=== PATIENT | male | born 1965 | race Caucasian/White ===

== ENCOUNTER 2023-03-29 16:06 | Emergency (ER) | payer OTHER, SELFPAY ==
[2023-03-29 16:09] VITALS: BP 147/96
[2023-03-29 16:28] LABS: % Basophils 0.9 % (0-2); % Immature Granulocytes 0.1 % (0-0.5); % Lymphocytes 38.5 % (20.5-51.1); % Monocytes 8.7 % (1.7-9.3); % Neutrophils 49.8 % (42.2-75.2); Absolute Basophils 0.1 10^3/uL (0-0.2); Absolute Eosinophils 0.2 10^3/uL (0-0.7); Absolute Lymphocytes 3.1 10^3/uL (1.2-3.4); Absolute Monocytes 0.7 10^3/uL (0.1-0.6); Absolute Neutrophils 4.1 10^3/uL (1.4-6.5); Hemoglobin 14.5 g/dL (13.0-18.0); Mean Corp Hgb Conc. 35.4 g/dL (33.0-37.0); Mean Corpuscular Hgb 29.9 pg (27.0-31.0); Mean Corpuscular Volume 84.5 fL (80.0-94.0); Mean Platelet Volume 9.2 fL (7.4-10.4); Nucleated Red Blood Cells % 0 % (-); Platelet Count 398 10^3/uL (130-400); Red Blood Cell Count 4.85 10^6/uL (4.70-6.10); Red Cell Dist. Width 12.4 % (11.5-14.5); White Blood Cell Count 8.1 10^3/uL (4.8-10.8)
[2023-03-29 16:50] LABS: ALT (SGPT) 23 U/L (0-50); AST (SGOT) 33 U/L (17-59); Albumin 4.3 g/dl (3.5-5.0); Alkaline Phosphatase 57 U/L (38-126); Blood Urea Nitrogen 15 mg/dl (9-20); Calcium 9.9 mg/dl (8.4-10.2); Carbon Dioxide 29 mmol/L (22-30); Chloride 97 mmol/L (98-107); Glucose 117 mg/dl (70-99); Potassium 4.2 mmol/L (3.5-5.1); Sodium 136 mmol/L (135-145); Total Bilirubin 0.9 mg/dl (0.2-1.3); eGFR > 60.00
[2023-03-29 16:53] LABS: Troponin I < 0.012 ng/ml
--- NOTE | 2023-03-29 19:03 | ED.GENMED ---
History of Present Illness
General
Chief Complaint: Chest Pain
Source: patient
Exam Limitations: none
Time Seen by Provider: 03/29/23 18:43
Travel History
Have you had any contact with someone who has COVID-19?: No
Do you have any symptoms of coronavirus? Fever > 100 degrees, chills, cough, shortness of breath, sore throat, loss of taste or smell, muscle aches, or headache?: No
History of Present Illness
History of Present Illness:
This is a 58 year old male that comes in with c/o chest pain. States that he has had chest pain for the past 9 months. States that the pain has been constant but the intensitiy changes. States that today the pain was severe and its like a cattle
prod. States that the pain is on the left sided and into the side. States that today he felt lightheaded, dizzy and then he started with some numbness in the left arm and felt nauseated. States that the last time he was here he was told to stop
smoking so he did and is trying to eat better. States that he is always SOB. Denies any fever, chills, abd pain, vomiting, diarrhea, headache, urinary burning.
Past History
Past History
ED Past Medical History: COPD, HTN, Hypercholesterolemia and Other (Ulcers)
ED Past Surgical History: Other (Dental)
Social History
Tobacco: Former smoker
Alcohol: None (for 24 years)
Drug: None
Personal:
Living: with family
Employment: Not employed
Review of Systems
Review of Systems
All Other Systems: ROS reviewed and negative except as documented in HPI and ROS
Constitutional: Reports no symptoms; Denies fever or chills
EENT: Reports no symptoms
Respiratory: Reports trouble breathing (Always SOB); Denies cough
Cardiac: Reports chest pain
ABD/GI: Reports nausea; Denies abdominal pain, vomiting or diarrhea
: Reports no symptoms; Denies dysuria, frequency or urgency
Musculoskeletal: Reports no symptoms
Skin: Reports no symptoms
Neurological: Reports dizzy; Denies headache
Psychiatric: Reports no symptoms
Phy Exam
General Physical Exam
General Presentation: no apparent distress
General age: appears stated age
General Skin: warm and dry
General Mental: alert
General Hydration: appears well hydrated
ENT Exam
ENT Exam: TM's normal, pharynx normal and neck supple
Eye Exam
Eye Exam: EOMI
Cardiovascular Exam
Cardiovascular Exam: regular rate/rhythm, no edema, no murmur and normal peripheral pulses
Pulmonary Exam
Pulmonary Exam: lungs clear (After cough), no respiratory distress, no rales, chest non tender, no crackles and no wheezing
Gastrointestinal Exam
Gastrointestinal Exam: normal bowel sounds, non tender, soft, no organomegaly, no pulsatile mass and non distended
Musculoskeletal Exam
Musculoskeletal Exam: full ROM and no edema
Skin Exam
Skin Exam: normal color, warm/dry, no rash and no petechia
Psychiatric Exam
Psychiatric Exam: normal mood/affect
Scores
Heart Score for Chest Pain Patients
STEMI patient?: No
History: Slightly or Non-Suspicious
ECG: Normal
Age: >45 - <65 years
Risk Factors: 1 or 2 Risk Factors
Troponin: </= Normal Limit
Heart Score for Chest Pain Patients: 2
Heart Score Risk: 2.5% MACE over next 6 weeks
Course
Orders/Labs/Results
Orders:
Orders
03/29/23 16:11
Electrocardiogram (*1) Urgent
Reason for Study: Chest Pain
03/29/23 16:12
EKG- Treatment ONCE
03/29/23 16:23
Complete Blood Count/With Diff Urgent
Comprehensive Metabolic Panel Urgent
Troponin I Urgent
03/29/23 18:54
Pantoprazole [Protonix IV] 40 mg IV NOW STA
03/29/23 18:55
EKG- Treatment ONCE
03/29/23 19:15
CR Chest - 2 Views Urgent
Comment:
Reason For Exam: Chest pain
03/29/23 19:20
Electrocardiogram (*1) Urgent
Reason for Study: Chest Pain
Other Reason for Exam: Repeat with Troponin
03/29/23 19:47
Troponin I Urgent
03/29/23 19:56
Pantoprazole [Protonix] 40 mg .ROUTE .STK-MED ONE
03/29/23 20:01
Pantoprazole [Protonix] 40 mg PO NOW STA
Abnormal Lab Results
03/29/23
16:23
Absolute Monos (auto) 0.7 H 10^3/uL
(0.1-0.6)
Chloride 97 L mmol/L
(98-107)
Glucose 117 H mg/dl
(70-99)
03/29/23 16:23
03/29/23 16:23
Glucose nonfasting. Troponin <0.012, Second Troponin <0.012
Vital Signs
Initial and Last Documented VS:
Initial Vital Signs
Temp Pulse Resp BP Pulse Ox
98.3 F 68 18 147/96 100
03/29/23 16:09 03/29/23 16:09 03/29/23 16:09 03/29/23 16:09 03/29/23 16:09
Last Documented Vital Signs
Temp Pulse Resp BP Pulse Ox
98.9 F 69 20 131/88 99
03/29/23 19:26 03/29/23 19:26 03/29/23 19:26 03/29/23 19:26 03/29/23 19:33
MDM/Problems Addressed
Differential Diagnosis Includes:
CAD, GERD, PNA
MDM/Problems Addressed:
This is a 58 year old male taht comes in with c/o left sided chest pain. States that this has been going on for 9 months but is getting worse. States that he always has pain there but the intensity comes and goes.
Will get labs ECG and chest X-ray.
Repeat ECG, Rate 54, NSR, Normal axis, Normal QRS, Negative for ischemia. Checked by Dr. Garces
Back into see patient. Explained that the Second Troponin is also normal. Chest x-ray is negative for acute disease. Will place patient on the Cardiology hot line and have patient follow up. Patient will also be given a prescription for Protonix to
help with any reflux and encouraged to decrease his caffeine. Patient to return with any concerns.
Chronic conditions affecting care: COPD
Acute Exacerbation and/or Progression of Chronic Illness: COPD
*Radiology
Radiology exam reviewed: preliminary read by ED provider (Chest- Negative for acute disease of the chest)
*Pulse Oximetry
Patient hypoxic: no
*EKG
Interpreted by ED Provider?: Yes
Heart Rate: 58
Rate: bradycardiac
Rhythm: sinus
[place]: normal axis
Interval: normal interval
QRS Pattern: normal QRS
Ischemia: no ischemia
*Operations Tech Interpretation
Rate: normal
Heart Rate: 62
Rhythm: sinus
*Critical Care Note
Total Time (30-74mins, 75-104mins- exclusive of procedures): Not Applicable
ED Attending Note
-
Portions of this chart may have been created with voice recognition software.� Occasional wrong word or��sound alike� substitutions may have occurred due to the inherent limitations of voice recognition software.
Discharge Plan
Departure
Patient Disposition: Home (Routine Discharge)
Date of Disposition: 03/29/23
Time of Disposition: 20:55
Patient with high blood pressure during this ER visit?: Yes
Condition: Good
Covid-19: Not Applicable
Discharge Problem:
Chest pain
Instructions: Chest Pain CBC Follow Up, BLOOD PRESSURE
Prescriptions:
New
pantoprazole [Protonix] 40 mg tablet,delayed release (DR/EC)
40 mg PO DAILY Qty: 30 0RF
No Action
metoprolol succinate 50 mg Tablet Extended Release 24 Hr
12.5 mg PO DAILY
Theragen Tablet
1 tab PO DAILY
aspirin 81 mg Tablet,Delayed Release (Dr/Ec)
162 mg PO DAILY PRN (Reason: chest pain)
albuterol sulfate [ProAir HFA] 90 mcg/actuation Hfa Aerosol Inhaler
2 puff INHALATION R QIDPRN PRN (Reason: sob)
Medical Marijuana
2 puff inhalation R Q6HPRN PRN (Reason: chronic pain)
Advair Diskus
1 inh inhalation BID
Referrals:
Kory Abraham MD [Family Provider] - Call in 1-3 days for appt
Activity Restrictions/Additional Instructions:
As discussed your blood work is normal along with both Troponin. Your Chest X-ray is negative for any acute process. You have been place on the Cardiology hot line. This means that they will call you on the next business day and set up an
appointment for further evaluation. You have also been given a prescription for Protonix to help with any reflux. Please decrease your caffeine intake. IF YOU HAVE INCREASED OR CHANGNG PAIN, OR YOU HAVE ANY OTHER CONCERNS PLEASE RETURN TO THE
EMERGENCY ROOM
Interventions
Interventions:
*Risk Screen - Suicide Last Done: 03/29/23 16:09
*General Assessment Last Done: 03/29/23 16:09
*Neglect/Abuse Screening Last Done: 03/29/23 16:09
ED- Fall Risk Assessment Last Done: 03/29/23 19:33
*ED COVID-19 Vaccine History Last Done: 03/29/23 16:09
ED- Cardiac Assessment Last Done: 03/29/23 19:33
[2023-03-29 19:26] VITALS: BP 131/88
[2023-03-29 19:32] VITALS: BMI 3139.5
[2023-03-29] MEDS: PROTONIX 40 MG PO (20:02)
[2023-03-29 20:18] LABS: Troponin I < 0.012 ng/ml
[2023-03-29 21:15] VITALS: BP 138/80
[2023-03-29 21:29] VITALS: BP 138/80
== END 2023-03-29 21:33 | disposition home or self-care (01) ==
LOC: EMR 16:06
PROVIDERS: Clinical Nurse Specialist Family Health; EMERGENCY PHYSICIAN Emergency Medicine; FAMILY PHYSICIAN Family Medicine
DX: R07.89 Other chest pain (principal)
CPT/HCPCS: 99285; 71046; 80053; 84484; 85025; 93005

== ENCOUNTER → 2023-04-17 07:01 | Outpatient (REF) | payer OTHER, SELFPAY | LOC: HWRCS 07:01 | PROVIDERS: ATTENDING PHYSICIAN Internal Medicine Cardiovascular Disease; FAMILY PHYSICIAN Family Medicine | DX: R07.89 Other chest pain (principal); I10 Essential (primary) hypertension; E11.9 Type 2 diabetes mellitus without complications; F17.200 Nicotine dependence, unspecified, uncomplicated; I45.10 Unspecified right bundle-branch block | CPT/HCPCS: 93306 ==

== ENCOUNTER → 2023-04-18 08:22 | Outpatient (REF) | payer OTHER, SELFPAY | LOC: RCS 08:22 | PROVIDERS: ATTENDING PHYSICIAN Internal Medicine Cardiovascular Disease; FAMILY PHYSICIAN Family Medicine | DX: R07.89 Other chest pain (principal); I10 Essential (primary) hypertension; E11.9 Type 2 diabetes mellitus without complications; F17.200 Nicotine dependence, unspecified, uncomplicated; I45.10 Unspecified right bundle-branch block | CPT/HCPCS: 93017 ==

== ENCOUNTER 2023-12-31 07:32 | Emergency (ER) | payer OTHER, SELFPAY ==
[2023-12-31 07:36] VITALS: BP 148/91
--- NOTE | 2023-12-31 08:47 | ED.GENMED ---
History of Present Illness
<JILLIAN Sweet - Last Filed: 12/31/23 09:55>
General
Chief Complaint: Musculo-Skeletal Complaint
Source: patient
Exam Limitations: none
Time Seen by Provider: 12/31/23 07:53
Nursing documentation reviewed up to this point in time: agreed with
History of Present Illness
History of Present Illness:
Patient is a 58-year-old male presents to the ER for evaluation of right elbow pain and swelling. This started 5 d ago. 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
He is right-hand dominant .he has taken some [id number] aspirin but nothing else. He denies any actual fevers. He is right-hand dominant. He reports he had more pain yesterday pain is definitely improved today however because of continued
swelling and discomfort he presented to the ER for evaluation.
He has no prior history of gout.
Denies any rash. He does report he does have arthritis and gets achy with rain and weather changes.
Past History
<JILLIAN Sweet - Last Filed: 12/31/23 09:55>
Past History
ED Past Medical History: COPD, HTN, Hypercholesterolemia and Other (Ulcers)
ED Past Surgical History: Other (Dental)
Social History
Tobacco: Former smoker
Alcohol: None (for 24 years)
Drug: None
Personal:
Living: with family
Employment: Not employed
Review of Systems
<JILLIAN Sweet - Last Filed: 12/31/23 09:55>
Review of Systems
Allergies reviewed?: Yes
All Other Systems: ROS reviewed and negative except as documented in HPI and ROS
Constitutional: Reports no symptoms; Denies fever, fatigue or chills
Musculoskeletal: Reports other (right elbow pain/swelling )
Skin: Reports no symptoms
Neurological: Reports no symptoms
Psychiatric: Reports no symptoms
Phy Exam
<JILLIAN Sweet - Last Filed: 12/31/23 09:55>
General Physical Exam
General Presentation: no apparent distress
General age: appears stated age
General Skin: warm and dry
General Habitus: normal
General Mental: alert
General Hydration: appears well hydrated
Neurological Exam
Neurological Exam: alert and oriented x3
Musculoskeletal Exam
Musculoskeletal Exam: other (RUE with strong pulses + swelling to right posterior elbow +discomfort with flexion ,mild surrounding erythema ,nml distal sensation )
Skin Exam
Skin Exam: normal color and warm/dry
Psychiatric Exam
Psychiatric Exam: normal mood/affect
Course
<JILLIAN Sweet - Last Filed: 12/31/23 09:55>
Orders/Labs/Results
Orders:
Orders
12/31/23 08:45
Cephalexin Monohydrate [Keflex] 500 mg PO NOW STA
Ibuprofen [Motrin] 600 mg PO NOW STA
Vital Signs
Initial and Last Documented VS:
Initial Vital Signs
Pulse Resp BP Pulse Ox
88 16 148/91 98
12/31/23 07:36 12/31/23 07:36 12/31/23 07:36 12/31/23 07:36
Last Documented Vital Signs
Temp Pulse Resp BP Pulse Ox
98.3 F 88 16 148/91 98
12/31/23 08:54 12/31/23 07:36 12/31/23 08:00 12/31/23 07:36 12/31/23 07:36
Seasonal Driver consulted with Physician
Seasonal Driver consulted with physician?: Yes
Name of Physician Consulted: Alicia
<Reinaldo Vargas DO - Last Filed: 12/31/23 09:15>
Orders/Labs/Results
Orders:
Orders
12/31/23 08:45
Cephalexin Monohydrate [Keflex] 500 mg PO NOW STA
Ibuprofen [Motrin] 600 mg PO NOW STA
Vital Signs
Initial and Last Documented VS:
Initial Vital Signs
Pulse Resp BP Pulse Ox
88 16 148/91 98
12/31/23 07:36 12/31/23 07:36 12/31/23 07:36 12/31/23 07:36
Last Documented Vital Signs
Temp Pulse Resp BP Pulse Ox
98.3 F 88 16 148/91 98
12/31/23 08:54 12/31/23 07:36 12/31/23 08:00 12/31/23 07:36 12/31/23 07:36
<JILLIAN Sweet - Last Filed: 12/31/23 09:55>
MDM/Problems Addressed
Differential Diagnosis Includes:
Not limited to arthritis bursitis, less likely septic arthritis, gout
MDM/Problems Addressed:
Symptoms are more consistent with bursitis versus septic arthritis. Patient is afebrile denies any fevers. Patient frequently (multiple times a day) transfers his disabled stepdaughter and reports he lifts her constantly using this elbow.
He is afebrile and nontoxic on exam patient is tender over the olecranon region with mild swelling and mild erythema over the site only. He is able to flex and extend does have mild discomfort. Patient eval by ED physician consistent with
bursitis. Will DC with ibuprofen every 8 hours however will also cover with Keflex with mild erythema however unlikely septic arthritis. Discussed with patient close outpatient follow family doctor next 2 days for recheck and to return if any
worsening of symptoms
<JILLIAN Sweet - Last Filed: 12/31/23 09:55>
*Critical Care Note
Total Time (30-74mins, 75-104mins- exclusive of procedures): Not Applicable
ED Attending Note
<JILLIAN Sweet - Last Filed: 12/31/23 09:55>
-
Portions of this chart may have been created with voice recognition software.� Occasional wrong word or��sound alike� substitutions may have occurred due to the inherent limitations of voice recognition software.
<Reinaldo Vargas DO - Last Filed: 12/31/23 09:15>
ED Attending Note
Patient seen and examined by attending physician: Yes
I performed a history and physical exam of patient and discussed management with resident, I reviewed resident's note and agree with documented findings and plan of care.: Yes
ED Attending Note:
I evaluated the patient at bedside. The patient does have some decreased active range of motion at the right elbow limited by edema over the olecranon bursa. There is associated mild warmth and mild erythema. Suspect more of an overuse syndrome
however given the warmth, will try antibiotics as well.
Discharge Plan
Departure
Patient Disposition: Home (Routine Discharge)
Date of Disposition: 12/31/23
Time of Disposition: 09:50
Patient with high blood pressure during this ER visit?: Yes
Condition: Fair
Covid-19: Not Applicable
Discharge Problem:
Bursitis
Instructions: Bursitis (DC), BLOOD PRESSURE
Prescriptions:
New
cephalexin 500 mg capsule
500 mg PO Q6H Qty: 28 0RF
No Action
metoprolol succinate 50 mg Tablet Extended Release 24 Hr
12.5 mg PO DAILY
Theragen Tablet
1 tab PO DAILY
aspirin 81 mg Tablet,Delayed Release (Dr/Ec)
162 mg PO DAILY PRN (Reason: chest pain)
albuterol sulfate [ProAir HFA] 90 mcg/actuation Hfa Aerosol Inhaler
2 puff INHALATION R QIDPRN PRN (Reason: sob)
Medical Marijuana
2 puff inhalation R Q6HPRN PRN (Reason: chronic pain)
Advair Diskus
1 inh inhalation BID
pantoprazole [Protonix] 40 mg tablet,delayed release (DR/EC)
40 mg PO DAILY Qty: 30 0RF
Referrals:
Maggie Dang MD [Family Provider] -
Siobhan Heart I., DO [Active] -
Activity Restrictions/Additional Instructions:
As discussed ibuprofen 400 to 600 mg every 8 hours with food for the next 2 to 3 days. You may take Tylenol in between. Also a prescription for antibiotic was sent to your pharmacy to take as directed every 6 hours. Closely follow-up with a
family doctor the next 2 days for wound check. Return if any worsening of symptoms increased pain swelling redness drainage fever chills. In addition you are also given orthopedics if needed to follow-up with.
Interventions
Interventions:
*Risk Screen - Suicide Last Done: 12/31/23 07:36
*General Assessment Last Done: 12/31/23 08:40
*Neglect/Abuse Screening Last Done: 12/31/23 07:36
ED- Fall Risk Assessment Last Done: 12/31/23 09:52
*ED COVID-19 Vaccine History Last Done: 12/31/23 08:40
*Nursing Disposition Last Done: 12/31/23 09:52
ED-Musculoskeletal Assessment Last Done: 12/31/23 08:00
Discharge Date and Time
Print Language: KHMER
[2023-12-31] MEDS: MOTRIN 600 MG PO (08:56)
[2023-12-31] MEDS: KEFLEX 500 MG PO (08:56)
[2023-12-31 09:52] VITALS: BP 134/78
== END 2023-12-31 09:52 | disposition home or self-care (01) ==
LOC: EMR 07:32
PROVIDERS: EMERGENCY PHYSICIAN Emergency Medicine; FAMILY PHYSICIAN Internal Medicine
DX: M70.31 Other bursitis of elbow, right elbow (principal); I10 Essential (primary) hypertension; Z87.891 Personal history of nicotine dependence
CPT/HCPCS: 99283

== ENCOUNTER 2024-01-04 04:22 | Emergency (ER) | payer OTHER, SELFPAY ==
[2024-01-04] VITALS (9 sets, daily range): BP systolic 102–137; BP diastolic 57–84; BMI 25.0
--- NOTE | 2024-01-04 07:09 | EDRN ---
provider now currently at the pts bedside to see the pt
--- NOTE | 2024-01-04 07:46 | ED.GENMED ---
History of Present Illness
General
Chief Complaint: Musculo-Skeletal Complaint
Time Seen by Provider: 01/04/24 07:00
History of Present Illness
History of Present Illness:
58-year-old male with past medical history of COPD and hypertension presenting to the ED with complaint of fever. Patient was seen here 2 days ago for olecranon bursitis and was prescribed ibuprofen 600 mg 3 times daily and Keflex. Patient notes he
was feeling better until yesterday but started having chills last night, checked his temperature at 3 AM was 100.4 F. Patient takes care of of his disabled daughter, and lefts her daily. Denies systemic symptoms. Patient notes he started having a
headache in the ED. No history of gout. Patient is not currently febrile in the ED.
Past History
Past History
ED Past Medical History: COPD, HTN, Hypercholesterolemia and Other (Ulcers)
ED Past Surgical History: Other (Dental)
Social History
Tobacco: Former smoker
Alcohol: None (for 24 years)
Drug: None
Personal:
Living: with family
Employment: Not employed
Review of Systems
Review of Systems
Constitutional: Reports fever and chills
EENT: Reports no symptoms
Respiratory: Reports no symptoms
Cardiac: Reports no symptoms
ABD/GI: Reports no symptoms
: Reports no symptoms
Musculoskeletal: Reports other (Right elbow pain)
Skin: Reports no symptoms
Neurological: Reports no symptoms
Endocrine: Reports no symptoms
Hematologic/Lymphatic: Reports no symptoms
Psychiatric: Reports no symptoms
Phy Exam
Physical Exam
Physical Exam:
GENERAL: Alert, in no apparent distress
EYE: pupils equal and reactive
NECK: Supple, no significant adenopathy.
ENT: o/p clr, mmm.
CARDIAC: Regular rate and rhythm.
LUNGS: Clear breath sounds bilaterally, no acute respiratory distress, no wheezes/rales/rhonchi
ABDOMEN: Soft, without focal tenderness, no r/g, no cvat
NEUROLOGICAL: Alert and oriented, no focal neuro deficits
SKIN: Warm and dry, skin intact.
MUSCULOSKELETAL: No edema, well perfused.
Right elbow: Pain on flexion. Tenderness on posterior right elbow. No swelling, warmth, erythema. ROM normal. Distal pulses normal.
PSYCH: Normal and appropriate interaction.
Course
Orders/Labs/Results
Orders:
Orders
01/04/24 07:46
Acetaminophen [Tylenol] 650 mg PO NOW STA
01/04/24 08:32
Urinalysis Reflex To Culture Urgent
Date Specimen was Collected: 01/04/24
Time Specimen was Collected: 08:21
01/04/24 09:57
Electrocardiogram (*1) Urgent
Reason for Study: Other
Other Reason for Exam: Sweating
EKG- Treatment ONCE
Vital Signs
Initial and Last Documented VS:
Initial Vital Signs
Temp Pulse Resp BP Pulse Ox
98.6 F 84 12 137/81 99
01/04/24 04:27 01/04/24 04:27 01/04/24 04:27 01/04/24 04:27 01/04/24 04:27
Last Documented Vital Signs
Temp Pulse Resp BP Pulse Ox
97.8 F 82 20 136/71 99
01/04/24 10:23 01/04/24 10:23 01/04/24 10:23 01/04/24 10:23 01/04/24 10:23
MDM/Problems Addressed
Differential Diagnosis Includes:
Olecranon bursitis
Septic arthritis
Gout
ACS
MDM/Problems Addressed:
- Physical exam not concerning.
- EKG --> normal
- Tylenol --> headache better
- Reassured patient and discussed returning to the ED with any concerning symptoms.
*Critical Care Note
Total Time (30-74mins, 75-104mins- exclusive of procedures): Not Applicable
ED Attending Note
-
Portions of this chart may have been created with voice recognition software.� Occasional wrong word or��sound alike� substitutions may have occurred due to the inherent limitations of voice recognition software.
Discharge Plan
Departure
Patient Disposition: Home (Routine Discharge)
Date of Disposition: 01/04/24
Time of Disposition: 10:16
Patient with high blood pressure during this ER visit?: Yes
Discharge Problem:
Chills, Elbow pain, right
Instructions: Ibuprofen, BLOOD PRESSURE
Prescriptions:
No Action
metoprolol succinate 50 mg Tablet Extended Release 24 Hr
12.5 mg PO DAILY
Theragen Tablet
1 tab PO DAILY
aspirin 81 mg Tablet,Delayed Release (Dr/Ec)
162 mg PO DAILYPRN PRN (Reason: chest pain)
albuterol sulfate [ProAir HFA] 90 mcg/actuation Hfa Aerosol Inhaler
2 puff INHALATION R QIDPRN PRN (Reason: sob)
Medical Marijuana
2 puff inhalation R Q6HPRN PRN (Reason: chronic pain)
Advair Diskus
1 inh inhalation BID
pantoprazole [Protonix] 40 mg tablet,delayed release (DR/EC)
40 mg PO DAILY Qty: 30 0RF
cephalexin 500 mg capsule
500 mg PO Q6H
Referrals:
Maggie Dang MD [Family Provider] -
Interventions
Interventions:
*Risk Screen - Suicide Last Done: 01/04/24 04:27
*General Assessment Last Done: 01/04/24 04:27
*Neglect/Abuse Screening Last Done: 01/04/24 04:27
ED- Fall Risk Assessment Last Done: 01/04/24 04:45
*ED COVID-19 Vaccine History Last Done: 01/04/24 08:13
*Nursing Disposition Last Done: 01/04/24 10:23
ED-Musculoskeletal Assessment Last Done: 01/04/24 04:45
Discharge Date and Time
Discharge Date/Time: 01/04/24 10:25
Print Language: IRISH
[2024-01-04] MEDS: TYLENOL PO (08:13)
--- NOTE | 2024-01-04 08:13 | EDRN ---
the pt is resting in stretcher in the lowest position, side rails up x1, call turner within reach, HOB elevated, no s/s of distress, the pt is able to ambulate independently with no issues, the pt refused Tylenol for pain in the right elbow, awaiting
for the provider to come back to the pts bedside to update the pt on the POC, will continue to monitor the pt closely
--- NOTE | 2024-01-04 08:16 | EDRN ---
Dr. Mora currently at the pts bedside
[2024-01-04] MEDS: TYLENOL 650 MG PO (08:28)
--- NOTE | 2024-01-04 08:34 | EDRN ---
urine sent and Tylenol administered, the pt is resting in stretcher in the lowest position, side rails up x1, HOB elevated, no s/s of distress, the pt denies needing anything at this time, will continue to monitor the pt closely
[2024-01-04 08:44] LABS: Urine Albumin Negative (Neg - Trace); Urine Bilirubin Negative (Negative); Urine Character Clear (Clear); Urine Color Yellow; Urine Glucose Negative (Negative); Urine Ketone Negative (Negative); Urine Leukocyte Negative (Negative); Urine Nitrite Negative (Negative); Urine Occult Blood Negative (Negative); Urine Urobilinogen Negative (Neg - 1+)
== END 2024-01-04 10:25 | disposition home or self-care (01) ==
LOC: EMR 04:22
PROVIDERS: EMERGENCY PHYSICIAN Emergency Medicine; FAMILY PHYSICIAN Internal Medicine
DX: R68.83 Chills (without fever) (principal); M25.521 Pain in right elbow; J44.9 Chronic obstructive pulmonary disease, unspecified; I10 Essential (primary) hypertension; E78.00 Pure hypercholesterolemia, unspecified; Z63.6 Dependent relative needing care at home; Z87.891 Personal history of nicotine dependence
CPT/HCPCS: 99282; 81003; 93005

== ENCOUNTER 2024-01-04 14:46 | Emergency (ER) | payer OTHER, SELFPAY ==
[2024-01-04 14:50] VITALS: BP 146/82
--- NOTE | 2024-01-04 17:00 | ED.GENMED ---
Addendum entered and electronically signed by Karolina Garces MD 01/04/24 19:45:
COVID + test resulted, I called pt and let him know.
Original Note:
History of Present Illness
General
Chief Complaint: Fever
Source: patient
Time Seen by Provider: 01/04/24 16:36
History of Present Illness
History of Present Illness:
58-year-old male who states that on Sunday when it was raining he noted right elbow pain. It is not unusual to develop pain with the rain. However, since then the right elbow pain was getting progressively worse such that he presented the
emergency department on Sunday complaints of a swollen and painful right elbow. Review of records notes that there was suspicion of the possibility although not strong suspicion for associated infection he was prescribed Keflex which she is
compliant with. He presented to the emergency department this morning because he noted a temp of 100.5 measured at home. He called EMS and states that medics checked his temperature and it was 101. Within a few minutes upon arrival to the ER his
temperature was normal. He went home, and got concerned again when his temperature was 100.1 which prompted his visit here. He denies any specific complaints. He does not have elbow pain and he denies redness warmth or swelling of the elbow. He
denies drainage, chills, sweats, chest pain, shortness of breath, neck pain, photophobia, rash, abdominal pain, or other complaints. He does state that he feels kind of 'blah', and reports increasing needs from his daughter given lack of the
typical nursing support which he is working on a solution for.
Past History
Past History
ED Past Medical History: COPD, HTN, Hypercholesterolemia and Other (Ulcers)
ED Past Surgical History: Other (Dental)
Social History
Tobacco: Former smoker
Alcohol: None (for 24 years)
Drug: None
Personal:
Living: with family
Employment: Not employed
Phy Exam
Physical Exam
Physical Exam:
GENERAL: Alert , in no apparent distress, extremely well-appearing
EYE: pupils equal and reactive
NECK: Supple, no significant adenopathy.
ENT: o/p clr, mmm.
CARDIAC: Regular rate and rhythm .
LUNGS: Clear breath sounds bilaterally, no acute respiratory distress, no wheezes/rales/rhonchi
ABDOMEN: Soft, without focal tenderness, no r/g, no cvat
NEUROLOGICAL: Alert and oriented, no focal neuro deficits
SKIN: Warm and dry, skin intact.
MUSCULOSKELETAL: No edema, well perfused. Patient has spontaneous full range of motion of right elbow, there is no redness, warmth, swelling, tenderness to palpation, break in skin, drainage, loss of sensation, or other abnormalities. The exam is
completely normal.
PSYCH: Normal and appropriate interaction.
Course
Orders/Labs/Results
Orders:
Orders
01/04/24 16:59
COVID-19 Antigen Stat
Source: Nasal Swab
Influenza A+B Rapid Molecular Urgent
SUSANNE Source: Nasal Swab
Specimen Description:
Vital Signs
Initial and Last Documented VS:
Initial Vital Signs
Temp Pulse Resp BP Pulse Ox
99.1 F 76 16 146/82 97
01/04/24 14:50 01/04/24 14:50 01/04/24 14:50 01/04/24 14:50 01/04/24 14:50
Last Documented Vital Signs
Temp Pulse Resp BP Pulse Ox
99.1 F 76 16 146/82 97
01/04/24 14:50 01/04/24 14:50 01/04/24 14:50 01/04/24 14:50 01/04/24 14:50
*Critical Care Note
Total Time (30-74mins, 75-104mins- exclusive of procedures): Not Applicable
Update Note
Update Note:
Patient presents to the Emergency Department with ___reported fever
Number and Complexity of Problems Addressed at the Encounter
� Chronic conditions affecting care:
� Acute Exacerbation and/or Progression of Chronic Illness:
� Differential Diagnosis includes: But not limited to septic bursitis, septic arthritis, nonspecific viral illness, etc. etc.
Amount and/or Complexity of Data to be Reviewed and Analyzed
� I performed an independent evaluation of and my interpretation is:
EKG:
CT:
Xrays:
Laboratory Studies:
Other:
� Review of other/old records reveals:
� Clinical information was obtained by an independent historian:
� Prescriptions/Medications Considered but not given:
� Further testing considered but not performed:
Risk of Complications and/or Morbidity or Mortality of Patient Management
� Social determinants of health affecting care:
� Discussion with other providers (PCP, Hospitalists, Consultants, etc):
� Escalation of care including admission/observation vs risk of discharge considered: Long discussion with patient regarding his reassuring elbow exam. I encouraged him to finish the Keflex for which she has 3 more days. I also
highly doubt that he has ever had septic arthritis, and certainly his exam is not consistent with that at this time. I suspect his reported low-grade fevers at home are related to another potential source, none of which is the evident on exam here
given his normal exam and well appearance. We did do COVID and flu swabs and at his request we will call him if they are positive as he would like to leave to care for his daughter. Discussed with him importance of follow-up and reasons return to
the ER.
ED Attending Note
-
Portions of this chart may have been created with voice recognition software.� Occasional wrong word or��sound alike� substitutions may have occurred due to the inherent limitations of voice recognition software.
Discharge Plan
Departure
Patient Disposition: Home (Routine Discharge)
Date of Disposition: 01/04/24
Time of Disposition: 17:00
Patient with high blood pressure during this ER visit?: Yes
Condition: Good
Discharge Problem:
REPORTED FEVER
Instructions: Fever, Adult (DC), BLOOD PRESSURE
Prescriptions:
No Action
Theragen Tablet
1 tab PO DAILY
aspirin 81 mg Tablet,Delayed Release (Dr/Ec)
81 mg PO DAILYPRN PRN (Reason: chest pain)
Medical Marijuana
2 puff inhalation R Q6HPRN PRN (Reason: chronic pain)
pantoprazole [Protonix] 40 mg tablet,delayed release (DR/EC)
40 mg PO DAILY Qty: 30 0RF
cephalexin 500 mg capsule
500 mg PO Q6H
ipratropium-albuterol 0.5 mg-3 mg(2.5 mg base)/3 mL Solution For Nebulization
3 ml INHALATION R BID
nicotine (polacrilex) 2 mg Gum
2 mg BUCCAL Q2HPRN PRN (Reason: nicotine dependence)
ibuprofen 200 mg Tablet
600 mg PO Q8HPRN PRN (Reason: mild pain/fever)
metoprolol succinate 25 mg Tablet Extended Release 24 Hr
12.5 mg PO DAILY
albuterol sulfate 90 mcg/actuation Hfa Aerosol Inhaler
2 puff INHALATION R Q6HPRN PRN (Reason: sob)
rosuvastatin 10 mg Tablet
10 mg PO DAILY
levocetirizine 5 mg Tablet
5 mg PO DAILY
cholecalciferol (vitamin D3) [Vitamin D3] 25 mcg (1,000 unit) Tablet,Chewable
25 mcg PO DAILY
Trelegy Ellipta 100-62.5-25 mcg Blister With Device
1 inh INHALATION R DAILY
Referrals:
Maggie Dang MD [Family Provider] -
Activity Restrictions/Additional Instructions:
YOUR ELBOW DOES NOT APPEAR INFECTED. YOUR REPORTED FEVER IS THOUGHT TO BE FROM ANOTHER SOURCE. WE WILL CALL YOU IF YOUR FLU/COVID SWABS FROM TODAY ARE POSITIVE. IF YOU DEVELOP SEVERE ELBOW PAIN/REDNESS/WARMTH/SWELLING/DRAINAGE OR OTHER WORRISOME
SIGNS, GO TO THE ER IMMEDIATELY!
Interventions
Interventions:
*Risk Screen - Suicide Last Done: 01/04/24 14:55
*Neglect/Abuse Screening Last Done: 01/04/24 14:55
Discharge Date and Time
Print Language: INDONESIAN
[2024-01-04 17:33] LABS: COVID-19 Antigen Positive (Negative)
== END 2024-01-04 17:13 | disposition home or self-care (01) ==
LOC: EMR 14:46
PROVIDERS: EMERGENCY PHYSICIAN Emergency Medicine; FAMILY PHYSICIAN Internal Medicine
DX: R50.9 Fever, unspecified (principal); J44.9 Chronic obstructive pulmonary disease, unspecified; E78.00 Pure hypercholesterolemia, unspecified; I10 Essential (primary) hypertension; Z87.891 Personal history of nicotine dependence
CPT/HCPCS: 99283; 87502; 87811

== ENCOUNTER 2024-03-26 15:24 | Emergency (ER) | payer OTHER, SELFPAY ==
[2024-03-26 15:34] VITALS: BP 135/84
[2024-03-26 15:52] LABS: % Basophils 0.5 % (0-2); % Eosinophils 0.1 % (0-6); % Immature Granulocytes 0.3 % (0-0.5); % Lymphocytes 12.9 % (20.5-51.1); % Monocytes 3.7 % (1.7-9.3); % Neutrophils 82.5 % (42.2-75.2); Absolute Monocytes 0.3 10^3/uL (0.1-0.6); Absolute Neutrophils 6.3 10^3/uL (1.4-6.5); Hematocrit 45.6 % (39.0-52.0); Mean Corp Hgb Conc. 32.9 g/dL (33.0-37.0); Mean Corpuscular Hgb 29.8 pg (27.0-31.0); Mean Corpuscular Volume 90.5 fL (80.0-94.0); Mean Platelet Volume 9.4 fL (7.4-10.4); Nucleated Red Blood Cells % 0 % (-); Platelet Count 341 10^3/uL (130-400); Red Blood Cell Count 5.04 10^6/uL (4.70-6.10); Red Cell Dist. Width 12.6 % (11.5-14.5); White Blood Cell Count 7.6 10^3/uL (4.8-10.8)
[2024-03-26 16:06] LABS: ALT (SGPT) 27 U/L (0-50); AST (SGOT) 27 U/L (17-59); Albumin 5.1 g/dl (3.5-5.0); Alkaline Phosphatase 62 U/L (38-126); Blood Urea Nitrogen 16 mg/dl (9-20); Calcium 9.9 mg/dl (8.4-10.2); Carbon Dioxide 28 mmol/L (22-30); Chloride 100 mmol/L (98-107); Glucose 100 mg/dl (70-99); Potassium 4.4 mmol/L (3.5-5.1); Sodium 137 mmol/L (135-145); Total Protein 7.6 g/dl (6.3-8.2); eGFR > 60.00
[2024-03-26 16:14] LABS: Troponin I < 0.012 ng/ml
--- NOTE | 2024-03-26 19:32 | ED.GENMED ---
History of Present Illness
General
Chief Complaint: Chest Pain
Source: patient
Exam Limitations: none
Time Seen by Provider: 03/26/24 18:01
Nursing documentation reviewed up to this point in time: agreed with
History of Present Illness
History of Present Illness:
Patient with history of COPD, currently on erythromycin and prednisone, presents to ED secondary to recurrent left-sided chest pain associated with left arm tingling sensation unfortunately, patient has had similar chest pain over the past 1 year,
including evaluation with striper machine as an outpatient. Patient was receiving stress echocardiogram as an outpatient, which could not be continued secondary to his arthritic knee pain. Patient was scheduled for nuclear stress test as a result,
but could not be performed, as patient had other family needs that needed to be taken care of. Chest pain described as sharp, intermittent, without any alleviating or exacerbating factors. Denies trauma. Denies recent travel or surgery. Denies
back pain. Denies leg pain or swelling. Patient has had recent upper respiratory symptoms.
Past History
Past History
ED Past Medical History: COPD, HTN, Hypercholesterolemia and Other (Ulcers)
ED Past Surgical History: Other (Dental)
Social History
Tobacco: Former smoker
Alcohol: None (for 24 years)
Drug: None
Personal:
Living: with family
Employment: Not employed
Review of Systems
Review of Systems
Allergies reviewed?: Yes
All Other Systems: ROS reviewed and negative except as documented in HPI and ROS
Constitutional: Reports no symptoms
EENT: Reports no symptoms
Respiratory: Reports cough; Denies trouble breathing
Cardiac: Reports chest pain
ABD/GI: Reports no symptoms
Musculoskeletal: Reports no symptoms
Skin: Reports no symptoms
Neurological: Reports no symptoms
Phy Exam
Physical Exam
Physical Exam:
Physical Exam
General: no apparent distress, not acutely ill. afebrile
Head: nc/at. eomi
Neck: supple. no meningeal signs.
Heart: s1/s2 regular rate and rhythm, no murmur.
Lungs: no acute respiratory distress. clear bilaterally. chest wall nontender to palpation
Abdomen: normal bowel sounds. not tender.
Neuro: alert and oriented. no focal neurological deficits
Skin: no rash
Psychiatric: well kept. interactive and cooperative
Extremities: no edema. no calf tenderness.
Scores
Heart Score for Chest Pain Patients
STEMI patient?: No
History: Slightly or Non-Suspicious
ECG: Normal
Age: >45 - <65 years
Risk Factors: 1 or 2 Risk Factors
Troponin: </= Normal Limit
Heart Score for Chest Pain Patients: 2
Heart Score Risk: 2.5% MACE over next 6 weeks
Course
Orders/Labs/Results
Orders:
Orders
03/26/24 15:27
Electrocardiogram (*1) Urgent
Reason for Study: Other
Other Reason for Exam: left arm numbness, sob
EKG- Treatment ONCE
03/26/24 15:40
Complete Blood Count/With Diff Urgent
Comprehensive Metabolic Panel Urgent
Troponin I Urgent
03/26/24 18:01
CR Chest - 2 Views Urgent
Comment:
Reason For Exam: chest pain
Abnormal Lab Results
03/26/24
15:40
MCHC 32.9 L g/dL
(33.0-37.0)
Absolute Lymphs (auto) 1.0 L 10^3/uL
(1.2-3.4)
Neutrophils % 82.5 H %
(42.2-75.2)
Lymphocytes % 12.9 L %
(20.5-51.1)
Glucose 100 H mg/dl
(70-99)
Albumin 5.1 H g/dl
(3.5-5.0)
03/26/24 15:40
03/26/24 15:40
Vital Signs
Initial and Last Documented VS:
Initial Vital Signs
Temp Pulse Resp BP Pulse Ox
98.6 F 68 18 135/84 100
03/26/24 15:34 03/26/24 15:34 03/26/24 15:34 03/26/24 15:34 03/26/24 15:34
Last Documented Vital Signs
Temp Pulse Resp BP Pulse Ox
98.6 F 65 18 135/84 100
03/26/24 15:34 03/26/24 18:00 03/26/24 15:34 03/26/24 15:34 03/26/24 15:34
MDM/Problems Addressed
MDM/Problems Addressed:
History and exam inconsistent with acute coronary syndrome, given prolonged course of symptoms, intermittent. However, patient does have multiple risk factors for heart disease. As such, patient will be referred to cardiology for an outpatient
consultation, including potential nuclear stress test as outpatient. Patient given precautions to consider return to ED with worsening symptoms. Patient expresses discharge. Patient does not wish to stay for any further workup, as he has a
disabled child at home, whom he needs to take care of.
*EKG
Interpreted by ED Provider?: Yes
EKG Intrepretation Date: 03/26/24
Heart Rate: 59
Rate: bradycardiac
Rhythm: sinus
[place]: normal axis
Interval: normal interval
*Critical Care Note
Total Time (30-74mins, 75-104mins- exclusive of procedures): Not Applicable
ED Attending Note
-
Portions of this chart may have been created with voice recognition software.� Occasional wrong word or��sound alike� substitutions may have occurred due to the inherent limitations of voice recognition software.
Discharge Plan
Departure
Patient Disposition: Home (Routine Discharge)
Date of Disposition: 03/26/24
Time of Disposition: 19:32
Patient with high blood pressure during this ER visit?: Yes
Discharge Problem:
Chest pain
Instructions: Chest Pain CBC Follow Up
Prescriptions:
No Action
Theragen Tablet
1 tab PO DAILY
aspirin 81 mg Tablet,Delayed Release (Dr/Ec)
81 mg PO DAILYPRN PRN (Reason: chest pain)
Medical Marijuana
2 puff inhalation R Q6HPRN PRN (Reason: chronic pain)
pantoprazole [Protonix] 40 mg tablet,delayed release (DR/EC)
40 mg PO DAILY Qty: 30 0RF
cephalexin 500 mg capsule
500 mg PO Q6H
ipratropium-albuterol 0.5 mg-3 mg(2.5 mg base)/3 mL Solution For Nebulization
3 ml INHALATION R BID
nicotine (polacrilex) 2 mg Gum
2 mg BUCCAL Q2HPRN PRN (Reason: nicotine dependence)
ibuprofen 200 mg Tablet
600 mg PO Q8HPRN PRN (Reason: mild pain/fever)
metoprolol succinate 25 mg Tablet Extended Release 24 Hr
12.5 mg PO DAILY
albuterol sulfate 90 mcg/actuation Hfa Aerosol Inhaler
2 puff INHALATION R Q6HPRN PRN (Reason: sob)
rosuvastatin 10 mg Tablet
10 mg PO DAILY
levocetirizine 5 mg Tablet
5 mg PO DAILY
cholecalciferol (vitamin D3) [Vitamin D3] 25 mcg (1,000 unit) Tablet,Chewable
25 mcg PO DAILY
Trelegy Ellipta 100-62.5-25 mcg Blister With Device
1 inh INHALATION R DAILY
Referrals:
Flaco Ford MD [Active] -
UNKNOWN - PT DOES,NOT KNOW [Family Provider] -
Activity Restrictions/Additional Instructions:
As discussed, please follow-up with your striper machine for further evaluation and treatment. Please return to ED with worsening symptoms.
Interventions
Interventions:
*Risk Screen - Suicide Last Done: 03/26/24 15:34
ED- Cardiac Assessment Last Done: 03/26/24 17:15
Discharge Date and Time
Print Language: CZECH
== END 2024-03-26 19:35 | disposition home or self-care (01) ==
LOC: EMR 15:24
PROVIDERS: EMERGENCY PHYSICIAN Emergency Medicine
DX: R07.89 Other chest pain (principal); R20.2 Paresthesia of skin; J44.9 Chronic obstructive pulmonary disease, unspecified; I10 Essential (primary) hypertension; E78.00 Pure hypercholesterolemia, unspecified; Z87.891 Personal history of nicotine dependence
CPT/HCPCS: 99285; 71046; 80053; 84484; 85025; 93005

== ENCOUNTER 2024-03-27 07:25 | Emergency (ER) | payer OTHER, SELFPAY ==
[2024-03-27 07:37] VITALS: BP 134/82
--- NOTE | 2024-03-27 08:07 | ED.GENMED ---
History of Present Illness
General
Chief Complaint: Chest Pain
Source: patient
Exam Limitations: none
Time Seen by Provider: 03/27/24 07:41
Nursing documentation reviewed up to this point in time: agreed with
History of Present Illness
History of Present Illness:
59-year-old male with a history of former smoking, COPD, hypertension, hyperlipidemia presents for chest pain s which has really been going on for about a month but got significantly worse around 3 AM this morning. Patient says he was awake with
his disabled stepdaughter helping care for her and suddenly felt this intense chest pain into his jaw and down his arm with numbness in his jaw and neck and feeling like he was going to pass out. He still has the chest discomfort but the sensation
of near syncope is gone. He says he has had intermittent chest pains for a month, had COVID in January and then saw his doctor 3 occasions for chest discomfort which she attributed to COPD. He was not treated with steroids. He presumed he had
pneumonia but was never treated with antibiotics. Patient actually was seen here yesterday for this chest pain and had negative troponin and a normal chest x-ray and was sent home but in the cardiology chest pain hotline. Patient is seen
Liliana previously and last year tried to have an exercise stress test which he failed to. He was supposed to have a nuclear stress test but never had it. He is under tremendous amount of stress taking care of his stepdaughter full-time. He does
not sleep. He also lost his within the last year to metastatic breast cancer pain is 8 out of 10 currently and is worse with pressing on it. He does have some exertional component to the pain.
But also feels it at rest without movement. He is not having any pleuritic symptoms, no new cough, fevers or chills, no syncope, no abdominal pain. He did have some lower back discomfort as well
Past History
Past History
ED Past Medical History: COPD, HTN, Hypercholesterolemia and Other (Ulcers)
ED Past Surgical History: Other (Dental)
Social History
Tobacco: Former smoker
Alcohol: None (for 24 years)
Drug: None
Personal:
Living: with family
Employment: Not employed
Review of Systems
Review of Systems
Allergies reviewed?: Yes
All Other Systems: Not applicable
Phy Exam
Physical Exam
Physical Exam:
GENERAL: Alert , in no apparent distress
EYE: pupils equal and reactive
NECK: Supple
ENT: o/p clr, mmm.
CARDIAC: Regular rate and rhythm .
LUNGS: Clear breath sounds bilaterally, no acute respiratory distress, no wheezes/rales/rhonchi
ABDOMEN: Soft, without focal tenderness, no r/g, no cvat, normal bowel sounds
NEUROLOGICAL: Alert and oriented, no focal neuro deficits
SKIN: Warm and dry, skin intact.
MUSCULOSKELETAL: No edema, well perfused. neg leanne's sign
PSYCH: Normal and appropriate interaction.
Scores
Heart Score for Chest Pain Patients
STEMI patient?: Yes
History: Moderately Suspicious
ECG: Normal
Age: >45 - <65 years
Risk Factors: >/= 3 Risk Factors or History of CAD
Troponin: </= Normal Limit
Heart Score for Chest Pain Patients: 4
Heart Score Risk: 20.3% MACE over next 6 weeks
Course
Orders/Labs/Results
Orders:
Orders
03/27/24 07:29
EKG [Electrocardiogram (*1)] Urgent
Reason for Study: Chest Pain
EKG- Treatment ONCE
03/27/24 08:04
CT Chest/abd/pelvis Angio W/wo Urgent
Comment:
Reason For Exam: chest pain to jaw/back/arm
Morphine Sulfate 4 mg IV NOW STA
03/27/24 08:12
Complete Blood Count/With Diff Urgent
Comprehensive Metabolic Panel Urgent
PTT Urgent
Prothrombin Time Urgent
Troponin I Urgent
Abnormal Lab Results
03/27/24
08:12
Absolute Monos (auto) 0.7 H 10^3/uL
(0.1-0.6)
Monocytes % 9.8 H %
(1.7-9.3)
PT 14.9 H Sec
(11.4-14.6)
Glucose 110 H mg/dl
(70-99)
03/27/24 08:12
03/27/24 08:12
Vital Signs
Initial and Last Documented VS:
Initial Vital Signs
Temp Pulse Resp BP Pulse Ox
36.9 C 73 18 134/82 100
03/27/24 07:37 03/27/24 07:37 03/27/24 07:37 03/27/24 07:37 03/27/24 07:37
Last Documented Vital Signs
Temp Pulse Resp BP Pulse Ox
36.9 C 62 9 129/75 98
03/27/24 07:37 03/27/24 13:00 03/27/24 13:00 03/27/24 13:00 03/27/24 13:00
MDM/Problems Addressed
Differential Diagnosis Includes:
acs, aortic dissection, pe, chest wall pain, anxiety
MDM/Problems Addressed:
59-year-old male with a history of former smoker, COPD, hypertension and hyperlipidemia presents for the second time in 2 days for chest pain which has been intermittent for a month but occasionally positional and worse with exertion. Yesterday he
came in because he felt it radiate to his jaw. He had a workup that was negative and he was sent home for the chest pain hotline follow-up. Patient says at 3 AM it got worse again into his jaw which felt numb and left arm and he felt like he was
going to pass out. He says he still having symptoms here which are worse with palpation. he has a moderate heart score of 4. He took aspirin prior to arrival. Discussed with ED attending, recommended dissection study and cardiology consultation.
Sounds like patient had a exercise stress test that was unable to be completed because of his knee pain but he never got a nuclear stress test.
cards saw pt
agree the pain does not seem c/w acs
bt recommended outpatient nuc stress
ok with d/c home
ct study d/w pt
*Critical Care Note
Total Time (30-74mins, 75-104mins- exclusive of procedures): Not Applicable
ED Attending Note
-
Portions of this chart may have been created with voice recognition software.� Occasional wrong word or��sound alike� substitutions may have occurred due to the inherent limitations of voice recognition software.
Discharge Plan
Departure
Patient Disposition: Home (Routine Discharge)
Date of Disposition: 03/27/24
Time of Disposition: 13:02
Patient with high blood pressure during this ER visit?: No
Condition: Fair
Discharge Problem:
Chest pain
Instructions: Chest Pain PCP Follow Up
Prescriptions:
No Action
Theragen Tablet
1 tab PO DAILY
aspirin 81 mg Tablet,Delayed Release (Dr/Ec)
81 mg PO DAILYPRN PRN (Reason: chest pain)
Medical Marijuana
2 puff inhalation R Q6HPRN PRN (Reason: chronic pain)
pantoprazole [Protonix] 40 mg tablet,delayed release (DR/EC)
40 mg PO DAILY Qty: 30 0RF
cephalexin 500 mg capsule
500 mg PO Q6H
ipratropium-albuterol 0.5 mg-3 mg(2.5 mg base)/3 mL Solution For Nebulization
3 ml INHALATION R BID
nicotine (polacrilex) 2 mg Gum
2 mg BUCCAL Q2HPRN PRN (Reason: nicotine dependence)
ibuprofen 200 mg Tablet
600 mg PO Q8HPRN PRN (Reason: mild pain/fever)
metoprolol succinate 25 mg Tablet Extended Release 24 Hr
12.5 mg PO DAILY
albuterol sulfate 90 mcg/actuation Hfa Aerosol Inhaler
2 puff INHALATION R Q6HPRN PRN (Reason: sob)
rosuvastatin 10 mg Tablet
10 mg PO DAILY
levocetirizine 5 mg Tablet
5 mg PO DAILY
cholecalciferol (vitamin D3) [Vitamin D3] 25 mcg (1,000 unit) Tablet,Chewable
25 mcg PO DAILY
Trelegy Ellipta 100-62.5-25 mcg Blister With Device
1 inh INHALATION R DAILY
Referrals:
Kory Abraham MD [Family Provider] -
Jose Miguel Rivas MD [Active] - Follow up in 5-7 days
Activity Restrictions/Additional Instructions:
YOU WERE SEEN BY THE DIRECTOR ATHLETIC TODAY FO RYOUR CHEST PAIN
YOUR WORK UP HERE WAS UNREMARKABLE
YOU HAVE SOME INCIDENTAL FINDINGS ON CAT SCAN
BUT NOTHING TO EXPLAIN YOUR PAIN
THE DIRECTOR ATHLETIC WILL REACH OUT TO SCHEDULE YOUR STRESS TEST
FOR NOW CONTINUE THE ASPIRIN
RETURN FOR CONCERNS, PASSING OUT, SEVERE TROUBLE BREATHING OR PAIN OR ANY CONCERNS,
Interventions
Interventions:
*Risk Screen - Suicide Last Done: 03/27/24 07:37
*General Assessment Last Done: 03/27/24 07:37
*Neglect/Abuse Screening Last Done: 03/27/24 07:37
*ED COVID-19 Vaccine History Last Done: 03/27/24 07:37
*Nursing Disposition Last Done: 03/27/24 13:11
ED- Cardiac Assessment Last Done: 03/27/24 07:48
Discharge Date and Time
Discharge Date/Time: 03/27/24 13:11
Print Language: WOLOF
[2024-03-27] MEDS: MORPHINE SULFATE 4 MG IV (08:15)
[2024-03-27 08:18] LABS: % Basophils 0.9 % (0-2); % Immature Granulocytes 0.1 % (0-0.5); % Lymphocytes 31.6 % (20.5-51.1); % Monocytes 9.8 % (1.7-9.3); % Neutrophils 55.6 % (42.2-75.2); Absolute Basophils 0.1 10^3/uL (0-0.2); Absolute Eosinophils 0.2 10^3/uL (0-0.7); Absolute Lymphocytes 2.4 10^3/uL (1.2-3.4); Absolute Monocytes 0.7 10^3/uL (0.1-0.6); Absolute Neutrophils 4.2 10^3/uL (1.4-6.5); Hematocrit 42.1 % (39.0-52.0); Hemoglobin 14.1 g/dL (13.0-18.0); Mean Corp Hgb Conc. 33.5 g/dL (33.0-37.0); Mean Corpuscular Hgb 29.8 pg (27.0-31.0); Mean Platelet Volume 9.6 fL (7.4-10.4); Nucleated Red Blood Cells % 0 % (-); Platelet Count 305 10^3/uL (130-400); Red Blood Cell Count 4.73 10^6/uL (4.70-6.10); Red Cell Dist. Width 12.7 % (11.5-14.5); White Blood Cell Count 7.5 10^3/uL (4.8-10.8)
[2024-03-27 08:32] LABS: ALT (SGPT) 23 U/L (0-50); AST (SGOT) 21 U/L (17-59); Albumin 4.2 g/dl (3.5-5.0); Alkaline Phosphatase 55 U/L (38-126); Blood Urea Nitrogen 15 mg/dl (9-20); Calcium 9.5 mg/dl (8.4-10.2); Carbon Dioxide 29 mmol/L (22-30); Chloride 103 mmol/L (98-107); Glucose 110 mg/dl (70-99); Potassium 3.6 mmol/L (3.5-5.1); Sodium 139 mmol/L (135-145); Total Bilirubin 0.8 mg/dl (0.2-1.3); Total Protein 6.7 g/dl (6.3-8.2); eGFR > 60.00
[2024-03-27 08:42] LABS: Troponin I < 0.012 ng/ml
[2024-03-27 08:59] LABS: APTT 33.9 Sec (23.4-35.0); INR 1.11; PT 14.9 Sec (11.4-14.6)
[2024-03-27 10:14] VITALS: BP 135/89
[2024-03-27 11:00] VITALS: BP 115/78
[2024-03-27 12:00] VITALS: BP 143/91
--- NOTE | 2024-03-27 12:46 | CON.CAR ---
Addendum entered and electronically signed by Jose Miguel Rivas MD 03/27/24 14:13:
I saw and examined the patient.
The RESTAURANT KITCHEN AND SERVICE MANAGER's note was reviewed and I agree with the note.
Comment: 59 y/o male (cardiology patient of Dr. Ford) with hypertension, dyslipidemia, former smoker (quit 2 years ago), former ETOH abuse (sober 23 years), and COPD who is here for evaluation of chest discomfort. Tells us this chest pain has
been ongoing and nearly constant for months. Additionally, it seems to have been on and off over the last several years. It is tender to palpation and reproducible in the left upper chest. He tells us he got 'ran over' on his left side. It does
not appear to be obvious cardiac chest pain however he does have significant risk factors and is unable to exercise. Thus, we have set him up for a Lexiscan nuclear stress test.
-Outpatient Lexiscan nuc stress test
Original Note:
Consultation
Consultation Request
Date/Time Consultation Requested: 03/27/24 1130
Date/Time Consultation Performed: 03/27/24 1200
Requesting Provider: Arlene SCOTT
Performing Provider: Cathy WALSH for Dr. Rivas
Reason for Consultation: Chest pain
Medical History
-
Chief Complaint: chest pain
History of Present Illness:
59 y/o male (cardiology patient of Dr. Ford) with hypertension, dyslipidemia, former smoker (quit 2 years ago), former ETOH abuse (sober 23 years), and COPD who is here for evaluation of chest discomfort. This has been ongoing for and constant
for months. It is a left-sided, sharp pain, which is worse with palpation. He has some left sided arm numbness as well, but does report that he had trauma to that area in the past. Trops and EKG's unremarkable. Of note, he saw Dr. Ford for CP
last year and echo and stress test ordered. Echo with normal EF as below. Stress test was not able to be completed due to knee pain. Lexiscan stress test was ordered, but not done as an OP. He also gets light-headed and dizzy sometimes, and reports
lots of stress. He is in no distress at the time of my assessment.
Past Medical History
Past Medical History: COPD, HTN and Hypercholesterolemia
Social History
Tobacco: Former Smoker
Alcohol: Former
Family History
Family History: Other (mom 'heart disease')
Allergies / Home Medications
Allergy/AdvReac Type Severity Reaction Status Date / Time
amoxicillin Allergy Rash Verified 03/27/24 07:40
Fish Containing Products Allergy Nausea / Verified 03/27/24 07:40
Vomiting
prednisone Allergy Rash Verified 03/27/24 07:40
shellfish derived Allergy Nausea / Verified 03/27/24 07:40
Vomiting
fish Allergy Nausea / Uncoded 03/27/24 07:40
Vomiting
�Medication �Instructions �Recorded �Confirmed �Type
Medical Marijuana 2 puff inhalation R Q6HPRN PRN 09/27/22 01/04/24 History
chronic pain
aspirin 81 mg tablet,delayed 81 mg PO DAILYPRN PRN chest pain 09/27/22 01/04/24 History
release
therapeutic multivitamin 1 tab PO DAILY Supplement 09/27/22 01/04/24 History
pantoprazole 40 mg tablet,delayed 40 mg PO DAILY Gastrointestinal 03/29/23 01/04/24 Rx
release (Protonix) issue #30 tabs
albuterol sulfate 90 mcg/actuation 2 puff inhalation R Q6HPRN PRN sob 01/04/24 01/04/24 History
aerosol inhaler
cephalexin 500 mg capsule 500 mg PO Q6H Infection 01/04/24 01/04/24 History
cholecalciferol (vitamin D3) 25 25 mcg PO DAILY 01/04/24 01/04/24 History
mcg (1,000 unit) chewable tablet
(Vitamin D3)
fluticasone fur. 100 mcg-umeclid 1 inh inhalation R DAILY 01/04/24 01/04/24 History
62.5 mcg-vilant 25 mcg
inhalat.powder (Trelegy Ellipta)
ibuprofen 200 mg tablet 600 mg PO Q8HPRN PRN mild 01/04/24 01/04/24 History
pain/fever
ipratropium 0.5 mg-albuterol 3 mg 3 ml inhalation R BID 01/04/24 01/04/24 History
(2.5 mg base)/3 mL nebulization
soln
levocetirizine 5 mg tablet 5 mg PO DAILY 01/04/24 01/04/24 History
metoprolol succinate 25 mg 12.5 mg PO DAILY 01/04/24 01/04/24 History
tablet,extended release 24 hr
nicotine (polacrilex) 2 mg gum 2 mg buccal Q2HPRN PRN nicotine 01/04/24 01/04/24 History
dependence
rosuvastatin 10 mg tablet 10 mg PO DAILY 01/04/24 01/04/24 History
Review of Systems
-
History Source: Patient
All other systems: Negative unless noted (as above)
Constitutional: Other (light-headedness, dizziness)
Cardiac: Chest Pain
Neurological: Other (arm numbness)
Physical Exam
Vital Signs
Temp Pulse Resp BP Pulse Ox
98.4 F 64 15 135/89 100
03/27/24 07:37 03/27/24 10:45 03/27/24 10:45 03/27/24 10:14 03/27/24 10:45
Lab Results
03/27/24 08:12
03/27/24 08:12
Troponin I < 0.012 ng/ml 03/27/24 08:12
Physical Exam
General: Well Developed, Well Nourished and No Apparent Distress
HEENT: Normocephalic and Anicteric
Respiratory: Clear and Non Labored Respirations
Cardiac: Regular Rhythm
Musculoskeletal: No Edema
Skin: Warm and Dry
Neuro: AO x 3
Psych: Calm
Impression / Plan
-
Chest pain:
-while his CP sounds atypical, he does have multiple risk factors for CAD (hx smoking, HTN, HLD), and we should rule this out with stress testing, which will need to be nuclear Lexiscan due to knee issues. Our office will call to arrange and this
should be done within the next week.
-fortunately, EKG and trop are normal
HTN:
-continue meds and monitor as OP
COPD:
-not wheezing to assessment
GERD:
-continue PPI
Data Reviewed
-
EKG: Tracing Personally Visualized and interpreted (NSR 67 BPM)
Radiology: Report Reviewed by me (CXR: No evidence of active cardiopulmonary disease.)
CT Scan: Report Reviewed by me (CT scan: . No acute abnormalities. Specifically, there is no aortic dissection 2). There is vascular calcification including coronary artery calcification indicating atherosclerosis 3). There is cholelithiasis 4).
Diverticula are present in the colon with no CT evidence of diverticulitis)
Medical Tests (Nuc Med, Echo etc): Report Reviewed by me (Echo 04/17/23: Normal biventricular size and systolic function without regional wall motion abnormality. Estimated LVEF 55-60%. No significant valve disease. Mildly dilated aortic root:
SOV 4.0 cm.) and Other (stress test 04/19/23: nconclusive exercise treadmill test, as the patient was only able to exercise for 1 minute and 40 seconds. 2. Target heart rate was not achieved.)
Labs: Labs Reviewed by me
[2024-03-27 13:00] VITALS: BP 129/75
== END 2024-03-27 13:11 | disposition home or self-care (01) ==
LOC: EMR 07:25
PROVIDERS: Physician Assistant; EMERGENCY PHYSICIAN Emergency Medicine; FAMILY PHYSICIAN Family Medicine; OTHER PHYSICIAN Internal Medicine Cardiovascular Disease
DX: R07.89 Other chest pain (principal); J44.9 Chronic obstructive pulmonary disease, unspecified; I10 Essential (primary) hypertension; E78.00 Pure hypercholesterolemia, unspecified; K21.9 Gastro-esophageal reflux disease without esophagitis; Z87.891 Personal history of nicotine dependence; I25.10 Atherosclerotic heart disease of native coronary artery without angina pectoris; K80.20 Calculus of gallbladder without cholecystitis without obstruction; K57.30 Diverticulosis of large intestine without perforation or abscess without bleeding
CPT/HCPCS: 96374; 99284; 71275; 74174; 80053; 84484; 85025; 85610; 85730; 93005; Q9967

== ENCOUNTER → 2024-04-04 07:02 | Outpatient (REF) | payer OTHER, SELFPAY | LOC: HWRCS 07:02 | PROVIDERS: ATTENDING PHYSICIAN Internal Medicine Cardiovascular Disease | DX: R07.9 Chest pain, unspecified (principal) | CPT/HCPCS: 78452; 93017; A9500; J2785 ==

== ENCOUNTER 2024-10-21 07:33 | Emergency (ER) | payer OTHER, SELFPAY ==
[2024-10-21 07:35] VITALS: BP 149/88
[2024-10-21 09:45] VITALS: BP 162/81
--- NOTE | 2024-10-21 09:57 | ED.GENMED ---
History of Present Illness
General
Chief Complaint: Cardiac Symptoms
Source: patient
Exam Limitations: none
Time Seen by Provider: 10/21/24 09:52
Nursing documentation reviewed up to this point in time: agreed with
History of Present Illness
History of Present Illness:
59-year-old male patient has a history of alcohol use sober for over 20 years, hypertension, former smoker(quit 3 years) .patient reports he started with intermittent chest pain for the past several days but last night he had more consistent chest
pain and Up at night. He also had pain in his left arm left hand.
He feels that he is very dehydrated he has been drinking a lot of soda he does not like water. He also reports his heart dropped to the high 40s last night. He is on metoprolol 12.5 mg. He denies any dizziness or lightheadedness.
Patient reports he has been eval by cardiology in the past. From previous records it is noted the patient has been seen by DR Ford in the past. From chart review pt had stress test 03/2024 which was neg for ischemia.
Patient does report he has not been getting a lot of sleep. He cares for his disabled stepdaughter at home and is often up throughout the night.
Past History
Past History
ED Past Medical History: COPD, HTN, Hypercholesterolemia and Other (Ulcers)
ED Past Surgical History: Other (Dental)
Social History
Tobacco: Former smoker
Alcohol: None (for 24 years)
Drug: None
Personal:
Living: with family
Employment: Not employed
Phy Exam
General Physical Exam
General Presentation: no apparent distress
General age: appears stated age
General Skin: warm and dry
General Habitus: normal
General Mental: alert
General Hydration: dry mucous membranes
Eye Exam
Eye Exam: PERRL and EOMI
Eye Exam General: PERRL: bilateral and EOM intact: bilateral
Pupil Exam: Bilateral: round and reactive
Neurological Exam
Neurological Exam: alert, oriented x3, no motor deficits and no sensory deficits
Musculoskeletal Exam
Musculoskeletal Exam: full ROM
Skin Exam
Skin Exam: normal color and warm/dry
Psychiatric Exam
Psychiatric Exam: normal mood/affect
Course
Orders/Labs/Results
Orders:
Orders
10/21/24 07:38
Electrocardiogram (*1) Urgent
Reason for Study: Other
Other Reason for Exam: muscle cramping
EKG- Treatment ONCE
10/21/24 09:45
Complete Blood Count/With Diff Urgent
Comprehensive Metabolic Panel Urgent
TSH Reflex To Free T4 Urgent
Comment: ADD ON
Troponin I Urgent
10/21/24 10:19
Add On- LAB Urgent
Tests Added?: tsh w/ reflexive t4
10/21/24 10:26
0.9% Sodium Chloride 1000 ml [Nss] 1,000 ml IV BOLUS
10/21/24 10:53
Chest [CR Chest - 2 Views ] Urgent
Comment:
Reason For Exam: cp
Abnormal Lab Results
10/21/24
09:45
Chloride 109 H mmol/L
(98-107)
BUN 7 L mg/dl
(9-20)
Glucose 109 H mg/dl
(70-99)
10/21/24 09:45
10/21/24 09:45
Vital Signs
Initial and Last Documented VS:
Initial Vital Signs
Temp Pulse Resp BP Pulse Ox
98.4 F 58 18 149/88 99
10/21/24 07:35 10/21/24 07:35 10/21/24 07:35 10/21/24 07:35 10/21/24 07:35
Last Documented Vital Signs
Temp Pulse Resp BP Pulse Ox
98.4 F 61 21 134/77 100
10/21/24 07:35 10/21/24 12:15 10/21/24 12:15 10/21/24 12:01 10/21/24 10:15
Diesel Retrofit Installer consulted with Physician
Diesel Retrofit Installer consulted with physician?: Yes
Name of Physician Consulted: Laila
MDM/Problems Addressed
Differential Diagnosis Includes:
Not limited to ACS muscle pain, dehydration
MDM/Problems Addressed:
Patient is a 5-year-old male presents to the ER for evaluation of intermittent chest pain over the past several days. He had a negative cardiac stress test March 2024 and is followed by Dr. Ford. He is a former smoker. He has been
asymptomatic here heart rate between 50s and 60s (no dizziness or lightheadedness)In no acute distress cardiac troponin negative chest x-ray negative. Labs unremarkable. Patient was hydrated here as he does believe he was dehydrated. With no
symptoms presently negative cardiac troponin and chest pain over the past several days intermittently will discharge on chest pain hotline.
Chronic conditions affecting care:
Former smoker-pressure
*Radiology
Radiology exam reviewed: radiology read reviewed
*Pulse Oximetry
SaO2: 100
Oxygen Mode of Delivery: Room air
Patient hypoxic: no
*EKG
Interpreted by ED Provider?: Yes
Interpretation: abnormal
Heart Rate: 52
Rate: bradycardiac
Rhythm: sinus
Ischemia: no ischemia
*Critical Care Note
Total Time (30-74mins, 75-104mins- exclusive of procedures): Not Applicable
Data Reviewed
Review of Other/Old Records Reveals: Other (stress test )
ED Attending Note
-
Portions of this chart may have been created with voice recognition software.� Occasional wrong word or��sound alike� substitutions may have occurred due to the inherent limitations of voice recognition software.
Discharge Plan
Departure
Patient Disposition: Home (Routine Discharge)
Date of Disposition: 10/21/24
Time of Disposition: 13:00
Patient with high blood pressure during this ER visit?: Yes
Condition: Fair
Covid-19: Not Applicable
Discharge Problem:
Chest pain
Instructions: Chest Pain (DC), Chest Pain CBC Follow Up, BLOOD PRESSURE
Prescriptions:
No Action
Theragen Tablet
1 tab PO DAILY
aspirin 81 mg Tablet,Delayed Release (Dr/Ec)
81 mg PO DAILYPRN PRN (Reason: chest pain)
Medical Marijuana
2 puff inhalation R Q6HPRN PRN (Reason: chronic pain)
pantoprazole [Protonix] 40 mg tablet,delayed release (DR/EC)
40 mg PO DAILY Qty: 30 0RF
cephalexin 500 mg capsule
500 mg PO Q6H
ipratropium-albuterol 0.5 mg-3 mg(2.5 mg base)/3 mL Solution For Nebulization
3 ml INHALATION R BID
nicotine (polacrilex) 2 mg Gum
2 mg BUCCAL Q2HPRN PRN (Reason: nicotine dependence)
ibuprofen 200 mg Tablet
600 mg PO Q8HPRN PRN (Reason: mild pain/fever)
metoprolol succinate 25 mg Tablet Extended Release 24 Hr
12.5 mg PO DAILY
albuterol sulfate 90 mcg/actuation Hfa Aerosol Inhaler
2 puff INHALATION R Q6HPRN PRN (Reason: sob)
rosuvastatin 10 mg Tablet
10 mg PO DAILY
levocetirizine 5 mg Tablet
5 mg PO DAILY
cholecalciferol (vitamin D3) [Vitamin D3] 25 mcg (1,000 unit) Tablet,Chewable
25 mcg PO DAILY
Trelegy Ellipta 100-62.5-25 mcg Blister With Device
1 inh INHALATION R DAILY
Referrals:
Kory Abraham MD [Family Provider, Family Practice]
Flaco Ford MD [Active, Cardiology]
Activity Restrictions/Additional Instructions:
As discussed follow-up with cardiology. You were placed on the chest pain hotline. You should receive a phone call from the office in the next day or 2 if you do not please give the office a call to schedule an appointment soon as possible. Try
and get some more rest and drink plenty of fluids return if any worsening of symptoms
Interventions
Interventions:
*Risk Screen - Suicide Last Done: 10/21/24 07:35
*General Assessment Last Done: 10/21/24 07:35
*Neglect/Abuse Screening Last Done: 10/21/24 07:35
*ED- Fall Risk Assessment Last Done: 10/21/24 10:07
*ED COVID-19 Vaccine History Last Done: 10/21/24 10:07
ED- Pulmonary Assessment Last Done: 10/21/24 10:07
ED- Cardiac Assessment Last Done: 10/21/24 10:07
Discharge Date and Time
Print Language: PALAUAN
[2024-10-21 10:01] LABS: Hematocrit 41.7 % (39.0-52.0); Hemoglobin 14.3 g/dL (13.0-18.0); Mean Corp Hgb Conc. 34.3 g/dL (33.0-37.0); Mean Corpuscular Volume 84.9 fL (80.0-94.0); Nucleated Red Blood Cells % 0 % (-); Platelet Count 275 10^3/uL (130-400); Red Cell Dist. Width 12.7 % (11.5-14.5)
[2024-10-21 10:07] VITALS: BP 136/74
[2024-10-21 10:11] LABS: ALT (SGPT) 26 U/L (0-50); AST (SGOT) 27 U/L (17-59); Albumin 4.4 g/dl (3.5-5.0); Alkaline Phosphatase 61 U/L (38-126); Blood Urea Nitrogen 7 mg/dl (9-20); Calcium 9.5 mg/dl (8.4-10.2); Carbon Dioxide 24 mmol/L (22-30); Chloride 109 mmol/L (98-107); Glucose 109 mg/dl (70-99); Potassium 3.9 mmol/L (3.5-5.1); Sodium 141 mmol/L (135-145); Total Protein 6.9 g/dl (6.3-8.2); eGFR > 60.00
[2024-10-21 10:21] LABS: Troponin I < 0.012 ng/ml
[2024-10-21] MEDS: NSS 1000 IV (10:28)
[2024-10-21 11:00] VITALS: BP 122/71
[2024-10-21 12:01] VITALS: BP 134/77
[2024-10-21 13:00] VITALS: BP 149/86
== END 2024-10-21 13:15 | disposition home or self-care (01) ==
LOC: EMR 07:33
PROVIDERS: Emergency Medicine; EMERGENCY PHYSICIAN Student in an Organized Health Care Education/Training Program; FAMILY PHYSICIAN Family Medicine
DX: R07.9 Chest pain, unspecified (principal); J44.9 Chronic obstructive pulmonary disease, unspecified; I10 Essential (primary) hypertension; E78.00 Pure hypercholesterolemia, unspecified; Z87.891 Personal history of nicotine dependence
CPT/HCPCS: 96360; 99285; 71046; 80053; 84443; 84484; 85025; 93005

== ENCOUNTER 2024-10-23 15:19 | Inpatient (IN) | payer OTHER, SELFPAY ==
[2024-10-23] VITALS (10 sets, daily range): BP systolic 110–148; BP diastolic 70–102; BMI 27.6
--- NOTE | 2024-10-23 13:35 | W.PN.CD ---
Addendum entered and electronically signed by Flaco Ford MD 10/23/24 14:40:
59-year-old male with risk factors for coronary artery disease including history of smoking, hypertension and hypercholesterolemia who presents with chest and left arm pain. Patient's had increased symptoms over the last 4 days. Random episodes
that last about 30 seconds chest pain with radiation down the left arm to the point where his left arm and hand become very uncomfortable. No precipitating factors. No clear exertional symptoms. Patient had chest pains and arm pains earlier in
the year had an evaluation including a Lexiscan nuclear perfusion stress test without clear evidence of ischemia. It appears that there was a fixed inferior defect and there was some reversibility apex but there was resolution with prone imaging.
He also had chest and abdomen CT back in March. Some coronary calcification was reported on that study. Patient had an recent ER visit and was subsequently discharged. Seen in our office today and concern was raised due to his recurrent chest
and arm discomfort. Patient's had multiple episodes today. Despite the symptoms his ECG is without ischemia and first troponin is negative. Exact cause of symptoms unclear. Although the location of his symptoms could be consistent with angina
there has been an atypical component to the pattern. Considering patient has risk factors for coronary artery disease, evidence of coronary calcification by previous CT scan he continues to have recurrent chest and arm symptoms plan will be to
proceed with cardiac catheterization which also had been recommended when he saw Dr. Ragsdale today. Patient is in agreement. Issues have been reviewed with interventional cardiology. Patient has received aspirin. Plan for cardiac
catheterization later today.
. Patient did report that sometimes he notices slower heart rates sometimes in the 50s and sometimes in the 40s recently has metoprolol has been discontinued. No evidence of bradycardia since he has been at the hospital heart rates have been in
the 60s. Will continue to monitor.
Addendum entered and electronically signed by JILLIAN Salcido 10/23/24 14:25:
Of note, patient reports metoprolol was stopped 2 weeks ago.
Original Note:
Today's Communication / Plan
-
Cardiac lab systems analyst today
Full dose ASA given
Impression / Plan
-
59 y/o male (Patient of Dr. Ford) with hypertension, hyperlipidemia, former smoker, current cannabis use, and COPD is here from the office with continued intermittent chest discomfort with radiation to left arm (though sometimes that seems to be
separate). This happens multiple times a day without anything making it better or worse. He was sent here for cath due to concern for unstable angina. EKG and troponin normal. Full H+P uploaded to chart.
Chest discomfort:
-there is concern for unstable angina, which is threat to life
-ASA given. He is going to the lab systems analyst now.
-lipids, A1C
COPD:
-stable without wheezing
-continue usual inhaler therapy
Dyslipidemia:
-check lipids
-continue statin
HTN:
-not currently on meds, monitor trends
Data:
Echo 2023- Normal biventricular size and systolic function without regional wall motion abnormality. Estimated LVEF 55-60%. No significant valve disease. Mildly dilated aortic root: SOV 4.0 cm.
Stress test 03/2024: Lexiscan nuclear stress test. No chest pain. No EKG changes specific for ischemia. No perfusion evidence of ischemia or infarction. Systolic function is normal. The ejection fraction is 59%.
Physical Exam
Vital Signs/Labs
Vital Signs
Temp Pulse Resp BP Pulse Ox
98.8 F 66 15 139/88 99
10/23/24 13:00 10/23/24 13:30 10/23/24 13:30 10/23/24 13:00 10/23/24 13:30
Physical Exam
Constitutional: No acute distress
EENT: Anicteric
Cardiovascular: Rhythm & rate is regular
Respiratory: Respiratory effort normal and Lungs clear to auscul.
Neuro/Psych: AO x 3
Data Reviewed
-
Date of Service: October 23, 2024
EKG: Tracing Personally Visualized and interpreted (NSR) and Other (SR)
Labs: Labs Reviewed by me
[2024-10-23 13:37] LABS: ALT (SGPT) 27 U/L (0-50); AST (SGOT) 27 U/L (17-59); Albumin 4.4 g/dl (3.5-5.0); Alkaline Phosphatase 57 U/L (38-126); Blood Urea Nitrogen 8 mg/dl (9-20); Calcium 9.9 mg/dl (8.4-10.2); Carbon Dioxide 27 mmol/L (22-30); Chloride 106 mmol/L (98-107); Glucose 97 mg/dl (70-99); Potassium 3.7 mmol/L (3.5-5.1); Sodium 139 mmol/L (135-145); Total Protein 7.0 g/dl (6.3-8.2); eGFR > 60.00
[2024-10-23 13:39] LABS: Hematocrit 41.7 % (39.0-52.0); Hemoglobin 14.2 g/dL (13.0-18.0); Mean Corp Hgb Conc. 34.1 g/dL (33.0-37.0); Mean Corpuscular Volume 84.6 fL (80.0-94.0); Nucleated Red Blood Cells % 0 % (-); Platelet Count 278 10^3/uL (130-400); Red Cell Dist. Width 12.7 % (11.5-14.5)
[2024-10-23] MEDS: LOW STRENGTH ASPIRIN 324 MG PO (13:42)
--- NOTE | 2024-10-23 13:47 | ED.GENMED ---
History of Present Illness
General
Chief Complaint: Cardiac Symptoms
Time Seen by Provider: 10/23/24 13:07
History of Present Illness
History of Present Illness:
59-year-old male with history of hyperlipidemia presenting to the emergency department for persistent intermittent chest pain. Patient reports symptoms for the past month, worsening over the past weekend. Patient seen in the hospital 2 days ago,
with unremarkable workup. He was given urgent follow-up with cardiology. Patient presents from cardiology office today given his symptoms, sent to the ER for possible catheterization. He notes that sometimes when the pain comes on, it goes to his
left arm. He denies exertional component. Denies any known coronary artery disease. Denies any difficulty breathing. Denies fever or cough. Denies additional acute medical complaints
Past History
Past History
ED Past Medical History: COPD, HTN, Hypercholesterolemia and Other (Ulcers)
ED Past Surgical History: Other (Dental)
Social History
Tobacco: Former smoker
Alcohol: None (for 24 years)
Drug: None
Personal:
Living: with family
Employment: Not employed
Phy Exam
Physical Exam
Physical Exam:
General: Well-appearing, no clinical signs of dehydration, nontoxic and in no acute distress
HEENT: protecting airway
Neck: appears supple
CV: Normal heart rate, regular rhythm
Resp: No accessory muscle use, no increased work of breathing, lungs clear to auscultation bilaterally
Abd: no distension
Neuro: alert, no focal neurologic deficit
: deferred
Rectal: deferred
Psych: Normal affect
Skin: Intact
Course
Orders/Labs/Results
Orders:
Orders
10/23/24 13:03
Electrocardiogram (*1) Urgent
Reason for Study: Chest Pain
Cardiac Monitoring- Treatment ONCE
EKG- Treatment ONCE
IV Insert/Care/Rem.- Treatment PRN
O2 Therapy [RESP] Urgent
Titrate/Wean O2 to maintain O2 sat greater than (%): 90
Special Instructions: Maintain sats >/=90%
Pulse Ox/spot Check [RESP] Urgent
Quantity: 1
Special Instructions: ON ROOM AIR
10/23/24 13:07
Complete Blood Count/With Diff Urgent
Comprehensive Metabolic Panel Urgent
Troponin I Urgent
10/23/24 13:26
Aspirin Chewable [Low Strength Aspirin] 324 mg PO NOW STA
10/23/24 13:52
Midazolam HCl [Versed] 2 mg .ROUTE .STK-MED ONE
Verapamil Injectable [Isoptin/Verapamil Injection] 5 mg .ROUTE .STK-MED ONE
10/23/24 13:53
Fentanyl Citrate/Pf [Sublimaze] 100 mcg .ROUTE .STK-MED ONE
Heparin 10,000 units .ROUTE .STK-MED ONE
Heparin 1000 Units/500 ml [Heparin] 1,000 units in 500 ml .ROUTE .STK-MED
Heparin Sodium,Porcine/Ns/Pf [Heparin 2000 Units/1000 ml] 4,000 unit in 2,000 ml .ROUTE .STK-MED
Lidocaine HCl/Pf [Xylocaine-Mpf 1% Vial] 50 mg .ROUTE .STK-MED ONE
Nitroglycerin [Tridil] 1,500 mcg .ROUTE .STK-MED ONE
Abnormal Lab Results
10/23/24
13:07
Absolute Monos (auto) 0.8 H 10^3/uL
(0.1-0.6)
Monocytes % 10.2 H %
(1.7-9.3)
BUN 8 L mg/dl
(9-20)
10/23/24 13:07
10/23/24 13:07
Vital Signs
Initial and Last Documented VS:
Initial Vital Signs
Temp Pulse Resp BP Pulse Ox
98.8 F 68 16 139/88 98
10/23/24 13:00 10/23/24 13:00 10/23/24 13:00 10/23/24 13:00 10/23/24 13:00
Last Documented Vital Signs
Temp Pulse Resp BP Pulse Ox
98.8 F 66 15 139/88 99
10/23/24 13:00 10/23/24 13:30 10/23/24 13:30 10/23/24 13:00 10/23/24 13:47
MDM/Problems Addressed
MDM/Problems Addressed:
59-year-old male presenting for intermittent chest pain. Vital signs are normal.
On exam patient is resting comfortably, no acute distress or discomfort. Denies any present chest pain. Patient sent in by cardiology given suspected stable angina. EKG obtained on arrival, nonischemic, no STEMI criteria. Plan for laboratory
analysis. Will administer aspirin and let cardiology know of patient's arrival
14:10 - Cardiology to bedside, patient will go to Office Machine Service Supervisor now
*Pulse Oximetry
SaO2: 99
Oxygen Mode of Delivery: Room air
Patient hypoxic: no
*EKG
Interpreted by ED Provider?: Yes
EKG Intrepretation Date: 10/23/24
EKG Intrepretation Time: 13:50
Interpretation: normal
Comparison EKG: no changes (09/20/24)
Heart Rate: 63
Rate: normal
Rhythm: sinus
Toxey: normal axis
Interval: normal interval
QRS Pattern: normal QRS
Ischemia: no ischemia
*Critical Care Note
Total Time (30-74mins, 75-104mins- exclusive of procedures): Not Applicable
ED Attending Note
-
Portions of this chart may have been created with voice recognition software.� Occasional wrong word or��sound alike� substitutions may have occurred due to the inherent limitations of voice recognition software.
Discharge Plan
Departure
Patient Disposition: Admit
Date of Disposition: 10/23/24
Time of Disposition: 14:14
Admit to: grass farm laborer
Presentation/result/management discussed w/ accepting MD/DO: cardiology
Patient with high blood pressure during this ER visit?: No
Condition: Fair
Discharge Problem:
Chest pain, Unstable angina
Prescriptions:
No Action
Theragen Tablet
1 tab PO DAILY
Medical Marijuana
2 puff inhalation R Q6HPRN PRN (Reason: chronic pain)
pantoprazole [Protonix] 40 mg tablet,delayed release (DR/EC)
40 mg PO DAILY Qty: 30 0RF
ipratropium-albuterol 0.5 mg-3 mg(2.5 mg base)/3 mL Solution For Nebulization
3 ml INHALATION R BIDPRN PRN (Reason: sob)
metoprolol succinate 25 mg Tablet Extended Release 24 Hr
12.5 mg PO DAILY
albuterol sulfate 90 mcg/actuation Hfa Aerosol Inhaler
2 puff INHALATION R Q6HPRN PRN (Reason: sob)
rosuvastatin 10 mg Tablet
10 mg PO DAILY
levocetirizine 5 mg Tablet
5 mg PO DAILY
cholecalciferol (vitamin D3) [Vitamin D3] 25 mcg (1,000 unit) Tablet,Chewable
25 mcg PO DAILY
Trelegy Ellipta 100-62.5-25 mcg Blister With Device
1 inh INHALATION R DAILY
acetaminophen [Tylenol] 325 mg Tablet
650 mg PO Q6HPRN PRN (Reason: mild pain)
nicotine 7 mg/24 hr Patch 24 Hour
1 patch TRANSDERMAL Q24H
Referrals:
Kory Abraham MD [Family Provider, Family Practice]
Interventions
Interventions:
*Risk Screen - Suicide Last Done: 10/23/24 13:00
*General Assessment Last Done: 10/23/24 13:26
*Neglect/Abuse Screening Last Done: 10/23/24 13:00
*ED- Fall Risk Assessment Last Done: 10/23/24 13:26
*ED COVID-19 Vaccine History Last Done: 10/23/24 13:26
ED- Pulmonary Assessment Last Done: 10/23/24 13:26
ED- Cardiac Assessment Last Done: 10/23/24 13:26
Discharge Date and Time
Print Language: ARGENTINE
[2024-10-23 13:48] LABS: Troponin I < 0.012 ng/ml
--- NOTE | 2024-10-23 15:16 | ITS.CL.CATH ---
[facility] - Catheterization
Cardiac Catheterization
Procedure Report:
CARDIAC CATHETERIZATION REPORT
Date of Procedure: 1924
Referring: Flaco Ford M.D.
INDICATION: Chest pain with multiple CAD risk factors, concern for unstable angina.
PROCEDURE:
1. Left heart catheterization.
2. Coronary angiography.
A total of 21 minutes of procedural/moderate sedation was utilized. An independent medical laboratory assistant was present to assist with and help manage the patient's level of consciousness and physiologic status.
ACCESS:
1. 6 Chinese right radial artery using a modified Seldinger technique.
CATHETERS:
1. 5 Chinese JR4.
2. 5 Chinese JL 3.5.
HEMODYNAMIC DATA
Weight (kg): 79.8
AO (s/d/x, mmHg): 109/69/84
LV (s/x mmHg): 111/5
LEFT VENTRICULOGRAPHY: Not performed.
CORONARY ANGIOGRAPHY
Dominance: Right.
Left Main: Normal size, bifurcating vessel. There is no coronary artery disease.
LAD: Normal size vessel giving rise to 3 diagonals. There is no coronary artery disease.
Ramus: Congenitally absent.
Circumflex: Normal size, nondominant vessel giving rise to 1 large obtuse marginal. There is no coronary artery disease.
RCA: Normal size, dominant vessel with a notable posterolateral arcade. There is a 30% lesion in the ostium of the RCA.
INTERVENTION(S)
None
Closure Device: Vascular band.
Radiation (mGy): 273.71
DAP (cm2.Gy): 15.6150
Fluoroscopy time (minutes): 1.9
CONCLUSIONS
1. Right dominant circulation with a 30% lesion in the ostium of the RCA.
2. Normal filling pressures (LVEDP = 5 mmHg at 79.8 kg).
RECOMMENDATIONS:
1. Expectant management after cardiac catheterization via right radial approach.
2. Limited weight bearing on the right wrist for one week.
3. Continue evaluation for chest pain, suspicion for neurogenic cause.
4. Aggressive primary prevention with high-dose, high potency statin. Goal LDL <55.
5. Continue primary prevention aspirin 81 mg daily.
6. Stable for outpatient cardiology follow-up.
Copy to: Flaco Ford M.D., Maggie Dang M.D.
Ralph Deleon DO, FACC, FACP
== END 2024-10-23 17:50 | disposition home or self-care (01) | DRG 287 ==
LOC: CATH-IN 15:19
PROVIDERS: Internal Medicine Cardiovascular Disease; Student in an Organized Health Care Education/Training Program; ADMITTING PHYSICIAN Internal Medicine Cardiovascular Disease; EMERGENCY PHYSICIAN Student in an Organized Health Care Education/Training Program; FAMILY PHYSICIAN Family Medicine
PROC: 4A023N7 Measurement of Cardiac Sampling and Pressure, Left Heart, Percutaneous Approach (ICD-10-PCS; 2024-10-23)
PROC: B211YZZ Fluoroscopy of Multiple Coronary Arteries using Other Contrast (ICD-10-PCS; 2024-10-23)
DX: I25.110 Atherosclerotic heart disease of native coronary artery with unstable angina pectoris (principal); E78.00 Pure hypercholesterolemia, unspecified; I10 Essential (primary) hypertension; J44.9 Chronic obstructive pulmonary disease, unspecified; Z87.891 Personal history of nicotine dependence; Z79.51 Long term (current) use of inhaled steroids; Z79.899 Other long term (current) drug therapy; Z82.49 Family history of ischemic heart disease and other diseases of the circulatory system; Z88.0 Allergy status to penicillin
CPT/HCPCS: 80053; 84484; 85025; 93005; 93458; 94760; 99152; 99285; C1769; C1894; Q9967